=== PATIENT | female | born 2005 | race Two or more races ===

== ENCOUNTER 2025-10-22 16:36 | Emergency (ER) | payer MEDICAID, SELFPAY ==
[2025-10-22 16:40] VITALS: BP 118/78; PULSE 83; RESP 18; TEMP 37.2; O2SAT 97; BMI 23.4
[2025-10-22 16:49] VITALS: PULSE 73; O2SAT 99
--- NOTE | 2025-10-22 17:25 | EKG_ITS ---
[facility] Test Date: 2025-10-22 Pat Name: CHRIS BECKFORD Department: Room: - Gender: Female Window [employer]inter: : 2005 Requested By: Wisam Fairbanks Order Number: [id number] Reading MD: Wisam Fairbanks Measurements Intervals [place] Rate: 67 P: 76 MT: 157 QRS: 75 QRSD: 100 T: 37 QT: 398 QTc: 423 Interpretive Statements SINUS RHYTHM WITH SINUS ARRHYTHMIA INCOMPLETE RIGHT BUNDLE BRANCH BLOCK [90+ ms QRS DURATION, TERMINAL R IN V1/V2, 40+ ms S IN I/aVL/V4/V5/V6] NONSPECIFIC T-WAVE ABNORMALITY No previous ECG available for comparison /store/S0/[id number]/ecg/[id number].pdf
--- NOTE | 2025-10-22 17:25 | PD.EDRME ---
Rapid Medical Screening Exam RME Arrival date/time: 10/22/25 16:36 20-year-old female with no known medical history presents to the emergency room with a chief complaint of palpitations x 2 hours I have greeted and performed a focused initial assessment of this patient. A comprehensive ED assessment and evaluation of the patient, analysis of all test results, and completion of the medical decision making process will be conducted by additional ED providers. Time Seen by Provider: 10/22/25 16:50 Vital signs: Vital Signs Temperature 98.9 F 10/22/25 16:40 Pulse Rate 83 10/22/25 16:40 Respiratory Rate 18 10/22/25 16:40 Blood Pressure 118/78 10/22/25 16:40 Pulse Oximetry (%) 97 10/22/25 16:40 Oxygen Delivery Method Room Air 10/22/25 16:40 Vital signs reviewed by provider: Yes Exam: Patient has a strong and regular rhythm S1 and S2 Clear bilateral lung sounds Clinical Impression: Palpitations/chest pain/medical pneumonia
[2025-10-22 17:49] LABS: Basophils # (Auto) 0.0 Thou/mm3 (0.0-0.2); Basophils % (Auto) 0 % (0-2.5); Eosinophils # (Auto) 0.0 Thou/mm3 (0.0-0.5); Eosinophils % (Auto) 0 % (0-10); Hematocrit 32.4 % (36.0-46.0); Hemoglobin 10.4 g/dL (12.0-16.0); Immature Granulocytes Auto 0.01 Thou/mm3 (0.00-0.00); Lymphocytes # (Auto) 1.3 Thou/mm3 (1.0-4.8); Lymphocytes % (Auto) 22 % (10-50); Mean Corpuscular HGB Conc 32.1 g/dl (31.0-37.0); Mean Corpuscular Hemoglobin 26.7 pg (25.0-35.0); Mean Corpuscular Volume 83 fL (80-100); Monocytes # (Auto) 0.4 Thou/mm3 (0.0-0.8); Monocytes % (Auto) 7 % (0-12); Neutrophils # (Auto) 4.1 Thou/mm3 (1.8-7.7); Neutrophils % (Auto) 71 % (37-80); Nucleated Red Blood Cell # 0.00 Thou/mm3 (0.00-0.00); Nucleated Red Blood Cell % 0 /100 WBC (0); Platelet Count 267 Thou/mm3 (140-440); RDW Standard Deviation 42.3 fL (36.4-46.3); Red Blood Count 3.89 Miln/mm3 (4.00-5.20); White Blood Count 5.8 Thou/mm3 (3.6-11.0)
[2025-10-22 18:04] LABS: Collection Type, Urine Clean Catch
[2025-10-22 18:08] LABS: B-Type Natriuretic Peptide < 20 pg/mL (0-100)
[2025-10-22 18:09] LABS: Bilirubin,Urine Negative (Negative); Blood,Urine Negative (Negative); Clarity,Urine Clear (Clear/Hazy); Color,Urine Colorless (Lt Yel-Yel); Culture Indicated,Urine Not Indicated; Glucose, Urine Negative (Negative); Ketones,Urine Negative (Negative); Leukocyte Esterase,Urine Negative (Negative); Nitrite,Urine Negative (Negative); PH,Urine 6.0 (5.0-7.0); Protein,Urine Negative (Neg - Trace); RBC,Urine 1 /hpf (0-3); Specific Gravity,Urine 1.011 (1.001-1.035); Squamous Epithelial Cell,Urine < 1 /hpf (0-5); Urobilinogen,Urine Negative mg/dL (0.0-1.0); WBC,Urine < 1 /hpf (0-5)
[2025-10-22 18:12] LABS: Alanine Aminotransferase 11 U/L (10-49); Albumin, Serum 4.9 gm/dL (3.5-5.0); Albumin/Globulin Ratio 1.8 (1.2-2.2); Alkaline Phosphatase 73 U/L (46-116); Anion Gap 9 (7-16); Aspartate Amino Transferase 22 U/L (0-34); BUN/Creatinine Ratio 13 Ratio (12-20); Bilirubin,Total 0.3 mg/dL (0.3-1.2); Blood Urea Nitrogen 8 mg/dL (9-23); Calcium 9.6 mg/dL (8.3-10.6); Calcium (Corrected) 9.6 mg/dL (8.5-10.1); Carbon Dioxide 26.1 mMol/L (20.0-31.0); Chloride 108 mMol/L (98-107); Creatinine (Component) 0.6 mg/dL (0.6-1.3); Estimated Creatinine Clearance 106.5 mL/min (>60); Free T4 (Free Thyroxine) 1.17 ng/dL (0.89-1.76); Globulin 2.8 gm/dL (2.3-3.5); Glucose 95 mg/dL (74-106); Osmolality,Calculated 283 (275-295); Potassium 3.6 mMol/L (3.4-5.1); Sodium 143 mMol/L (136-145); Thyroid Stimulating Hormone 0.79 uIU/mL (0.55-4.78); Total Protein 7.7 gm/dL (5.7-8.2); Troponin I < 0.002 ng/mL (0.0-0.045); eGFR > 60 See Note
--- NOTE | 2025-10-22 19:22 | PD.EDDIZZY ---
ED Dizzyness RME/HPI General Stated Complaint: ANXIETY Time Seen by Provider: 10/22/25 16:50 Arrival date/time: 10/22/25 16:36 This is a of 20-year-old female who came in in the emergency room feeling dizzy lightheadedness palpitation and mild shortness of breath patient verbalized that she is feeling anxious because of the symptoms today persistence of the symptoms this patient decided to sought consult here in the emergency room denies any chest pain headache nausea vomiting denies any denies taking any drug or alcohol Limitations: no limitations RME / HPI RME / HPI Narrative: 10/22/25 16:36 20-year-old female with no known medical history presents to the emergency room with a chief complaint of palpitations x 2 hours I have greeted and performed a focused initial assessment of this patient. A comprehensive ED assessment and evaluation of the patient, analysis of all test results, and completion of the medical decision making process will be conducted by additional ED providers. Exam: Patient has a strong and regular rhythm S1 and S2 Clear bilateral lung sounds Impression: Palpitations/chest pain/medical pneumonia Related Data Previous Rx's ?Medication ?Instructions ?Recorded acetaminophen 500 mg capsule 1,000 mg (2 x 500 mg) PO TID #30 03/24/22 caps hydroxyzine pamoate 25 mg capsule 25 mg PO BID PRN anxiety #10 caps 10/22/25 meclizine 25 mg tablet 25 mg PO QDAY PRN dizziness #20 10/22/25 tabs ondansetron 4 mg disintegrating 4 mg PO Q8H #20 tabs 10/22/25 tablet Allergies Allergy/AdvReac Type Severity Reaction Status Date / Time No Known Allergies Allergy Verified 10/22/25 16:49 Review of Systems Review of Systems Systems Reviewed: All systems reviewed, normal except as documented Constitutional Constitutional: Reports system reviewed and no additional complaints, except as documented and Reports as per HPI ENT Ears, Nose, Mouth, and Throat: Reports system reviewed and no additional complaints, except as documented and Reports as per HPI Cardiovascular Cardiovascular: Reports system reviewed and no additional complaints, except as documented and Reports as per HPI Respiratory Respiratory: Reports system reviewed and no additional complaints, except as documented and Reports as per HPI Gastrointestinal Gastrointestinal: Reports system reviewed and no additional complaints, except as documented and Reports as per HPI Musculoskeletal Musculoskeletal: Reports system reviewed and no additional complaints, except as documented and Reports as per HPI Integumentary/Breasts Skin/Breast: Reports system reviewed and no additional complaints, except as documented and Reports as per HPI Neurologic Neurologic: Reports system reviewed and no additional complaints, except as documented and Reports as per HPI Past Medical History Past Medical History NEUROLOGIC: Negative Neurological Disorders CARDIAC: Negative Cardiac Disorders or Congestive Heart Failure RESPIRATORY: Negative Chronic Obstructive Pulmonary Disease (COPD) or Asthma GASTROINTESTINAL: Negative Gastrointestinal Disorders GENITOURINARY: Negative Genitourinary Disorders or Renal Disease REPRODUCTIVE: Negative Endometriosis, Genital Herpes, Gonorrhea, Pelvic Inflammatory Disease, Previous Pregnancies, Syphilis or Uterine Prolapse MUSCULOSKELETAL: Negative Musculoskeletal Disorders ENDOCRINE: Negative Endocrine Disorders, Diabetes Mellitus Type 1 or Diabetes Mellitus Type 2 HEMATOLOGIC: Negative Blood Disorders or Sickle Cell Disease OTHER HISTORY: Negative Hospitalization, Autoimmune Disease, Down Syndrome, Developmental Delay, Shingles, Falls, Blood Transfusions, Blood Transfusion Reaction, Anesthesia Reactions, Organ Transplant, MRSA, VRSA, Vancomycin-Resistant Enterococci, Chicken Pox, Measles, Mumps, Rubella ([place] Measles) or Clostridium Difficile Family History FAMILY HISTORY: Positive Family Cardiac Disorders (Father has murmur); Negative Family Psychiatric Problems, Family Respiratory Disorders, Family Gastrointestinal Problems, Family Cancer, Family Surgery or Family Anesthesia Reaction Surgical History SURGICAL: Negative Neurologic Surgery, Brain Shunt or Organ Transplant Social History SMOKING STATUS: Never smoker SECOND HAND EXPOSURE: No SUBSTANCE USE: does not use ED Exam General Limitations: Present no limitations General appearance: Present alert, in no apparent distress and other (Patient is awake alert oriented not in distress nontoxic looking well-hydrated well-nourished) Head Head exam: Present atraumatic, normocephalic and normal inspection Eye Eye exam: Present normal appearance, PERRL, EOMI and other (PERRL EOM intact normal conjunctiva no papilledema no hyphema) ENT ENT exam: Present normal exam, normal oropharynx, mucous membranes moist and other (HEENT exam is normal and unremarkable) Neck Neck exam: Present normal inspection, full ROM, trachea midline and other (Negative for meningeal sign); Absent tenderness, meningismus, lymphadenopathy or thyromegaly Chest Chest inspection: Present normal inspection and symmetric chest wall rise; Absent tenderness Respiratory Respiratory exam: Present normal lung sounds bilaterally; Absent respiratory distress, wheezes, stridor, accessory muscle use or prolonged expiratory phase Cardiovascular Cardiovascular exam: Present regular rate, normal rhythm, normal heart sounds and other (No pitting edema); Absent bradycardia, tachycardia, irregular rhythm, systolic murmur or diastolic murmur Abdominal Exam Abdominal exam: Present soft and normal bowel sounds; Absent distention, tenderness, guarding, rebound, rigidity, diminished bowel sounds, hyperactive bowel sounds or hypoactive bowel sounds Extremities Exam Extremities exam: Present normal inspection and full ROM Back Exam Back exam: Present normal inspection and full ROM Neurological Exam Neurological exam: Present alert, oriented X3, CN II-XII intact and reflexes normal; Absent motor sensory deficit Psychiatric Psychiatric exam: Present normal affect, normal mood and anxious; Absent depressed, agitated, flat affect, manic, homicidal ideation or suicidal ideation (No hallucination) Skin Skin exam: Present warm, dry, intact, normal color and other (Excellent skin turgor) Course Quality Measures none Orders Category Date Time Status EKG (ED ONLY) *Do not use* NOW Care 10/22/25 17:25 Completed EKG (ED Only) Stat Exams 10/22/25 17:25 Draft B-Type Natriuretic Peptide Stat Lab 10/22/25 17:38 Completed CBC Stat Lab 10/22/25 17:38 Completed Comprehensive Metabolic Panel Stat Lab 10/22/25 17:38 Completed Drug Screen,Urine Stat Lab 10/22/25 17:50 Completed Free T4 (Free Thyroxine) Stat Lab 10/22/25 17:38 Completed TSH [Thyroid Stimulating Hormone] Stat Lab 10/22/25 17:38 Completed Troponin I Stat Lab 10/22/25 17:38 Completed Urinalysis, C/S if Indicated Stat Lab 10/22/25 17:50 Completed Acetaminophen Tab [Tylenol Tab] Med 10/22/25 19:24 Discontinued 650 mg PO X1 ONE Meclizine HCl [Antivert] Med 10/22/25 19:24 Discontinued 50 mg PO X1 ONE Ondansetron Odt [Zofran Odt] Med 10/22/25 19:24 Discontinued 4 mg PO X1 ONE Sodium Chloride 0.9% 1000 ml [Ns] 1,000 ml Med 10/22/25 19:24 Discontinued IV 999 mls/hr Vital Signs Vital signs: Vital Signs Temperature 98.9 F 10/22/25 16:40 Pulse Rate 83 10/22/25 16:40 Respiratory Rate 18 10/22/25 16:40 Blood Pressure 118/78 10/22/25 16:40 Pulse Oximetry (%) 97 10/22/25 16:40 Oxygen Delivery Method Room Air 10/22/25 16:40 Oxygen saturation is 97% in room air Dizziness MDM Narrative MDM Narrative:: This is a of 20-year-old female who came in in the emergency room feeling dizzy lightheadedness palpitation and mild shortness of breath patient verbalized that she is feeling anxious because of the symptoms today persistence of the symptoms this patient decided to sought consult here in the emergency room denies any chest pain headache nausea vomiting denies any denies taking any drug or alcohol physical examination patient is awake alert oriented not in distress nontoxic looking well-hydrated well-nourished patient is mildly anxious but no depression no suicidal no homicidal ideation physical examination patient is awake alert oriented not in distress nontoxic looking well-hydrated well-nourished excellent skin turgor negative for meningeal sign HEENT exam is normal and unremarkable normal rate regular rhythm no murmur no pitting edema clear breath sounds no wheezing no rhonchi abdominal exam is benign nonsurgical no guarding no rebound no rigidity neurological exam patient is mildly anxious but no depression no hallucination no suicidal or homicidal ideation blood test showed no leukocytosis no anemia kidney and liver function is normal no electrolyte imbalance troponin is negative TSH is normal EKG is sinus rhythm based on my physical examination and history patient symptoms has no signs or symptoms of cardiopulmonary pathology patient will be discharged home stable condition follow-up with PCP in 2 days for reevaluation and to be referred to mirror fabrication supervisor for palpitation need to be referred also with psychiatrist psychologist for anxiety for any worsening symptoms or any emergent concern return precaution in the ER is advised Patient was discharged with comfortable condition walking with stable gait. Patient verbalized no further complains explained diagnosis and answered patient question. Patient is comfortable with the proposed management plan including the need to follow up with his/her primary care physician and any specialist if applicable Discussed patient for any urgent condition or worsening sx, He/She needed to go to emergency room immediately or call 911. Patient acknowledge the responsibility to follow up as instructed and to monitor her/his symptoms. For any persistence of the symptoms for more than 3-5 days return precaution advised. Discussed the result of the test and was given printed discharge instruction Patient data External records reviewed:: [facility] previous records Clinical information provided by:: patient Social determinants that could affect healthcare access:: none Patient has the following chronic illnesses:: none How is presenting disease/condition affected by chronic disease/condition?: no chronic disease Evaluation data The following diagnostics were reviewed and interpreted by me:: lab results, radiology exam(s) and EKG tracing(s) Lab and/or radiology exams considered but not ordered:: reeviwed Interpretation Summary: reviewed Medications / Prescriptions Medications or Prescriptions considered but not ordered:: given Medication administrations:: Medication Administration History Discontinued Medications Acetaminophen (Acetaminophen 325 Mg Tablet) 650 mg PO X1 ONE Stop: 10/22/25 19:25 Last Admin: 10/22/25 19:32 Dose: 650 mg Documented By: CALVIN Sodium Chloride (Ns) 1,000 mls @ 999 mls/hr IV .Q1H1M ONE Stop: 10/22/25 20:24 Last Infusion: 10/22/25 20:13 Dose: Infused Documented By: Admin: 10/22/25 19:35 Dose: 999 mls/hr Documented By: CALVIN Meclizine HCl (Meclizine Hcl 25 Mg Tablet) 50 mg PO X1 ONE Stop: 10/22/25 19:25 Last Admin: 10/22/25 19:33 Dose: 50 mg Documented By: CALVIN Ondansetron HCl (Ondansetron Odt 4 Mg Tabrap) 4 mg PO X1 ONE; Protocol Stop: 10/22/25 19:25 Last Admin: 10/22/25 19:35 Dose: Not Given Documented By: CALVIN Non-Admin Reason: Patient Refused given Consultations Consultation(s) initiated? (list below): No Diagnosis Dizziness Differential Diagnosis: benign paroxysmal positional vertigo, orthostatic hypotension and other (anxiety) Most likely diagnosis given after review of the tests above:: anxiety Admission Indicated Admission indicated?: not indicated Explain why admission is indicated or not indicated:: not indicated Admission Request Was there a request for admission?: No Admission Attestation Admission request attestation: not indicated Disposition Plan Disposition Plan: Discharge Discharge Attestation Discharge Attestation: The patient and all family members were given an opportunity to ask questions and understood the discharge instructions. Discharge instructions specifically effects, indications for sooner follow up or return to the emergency department, and the expected course of current diagnosis. Patient condition: Stable Discharge Plan Plan Patient Disposition: HOME (Self Care) Patient condition on transfer: Stable Prescriptions/Referrals Prescriptions/Med Rec: New hydroxyzine pamoate 25 mg capsule 25 mg PO BID PRN (Reason: anxiety) Qty: 10 0RF meclizine 25 mg tablet 25 mg PO QDAY PRN (Reason: dizziness) Qty: 20 0RF ondansetron 4 mg tablet,disintegrating 4 mg PO Q8H Qty: 20 0RF No Action acetaminophen 500 mg capsule 1,000 mg PO TID Qty: 30 0RF Referrals: Cody HURD),Meryl, PADMINI [Primary Care Provider] - In 1 week Problem List Clinical Impression: Dizziness, Palpitation, Anxiety Patient/Caregiver Discharge Instructions Education Materials: Treating Anxiety Disorders ..., ED Dizziness, Uncertain Cause, ED Palpitations Additional Instructions: Follow-up with your primary care physician in 2 days for reevaluation and to be referred to mirror fabrication supervisor for further evaluation and treatment of palpitation for possible echocardiogram stress test and Holter monitor he also needs to see a psychiatrist psychologist for anxiety and if the dizziness persist needs to see a neurologist for any recurrence persistent worsening symptoms or any emergent concern call 911 or go to the nearest emergency room take your medication as directed keep hydrated Print Language: Afghan Stand Alone Forms: [facility]eche Award Info., Patient Portal Info Letter JAVIER/PADMINI Supervising Physician JAVIER/PADMINI Supervising Physician: Dr. Analilia Gunn
[2025-10-22 19:27] LABS: Amphetamine/Methamp Scrn,U Negative (Negative); Barbiturate Screen,Urine Negative (Negative); Benzodiazepines Screen,Urine Negative (Negative); Benzoylecgonine Screen, Ur Negative (Negative); Fentanyl Screen,Urine Negative (Negative); Opiate Screen,Urine Negative (Negative); THC Screen,Urine Negative (Negative)
[2025-10-22 19:28] VITALS: BP 106/64; PULSE 111; RESP 18; TEMP 36.8; O2SAT 96
[2025-10-22] MEDS: ACETAMINOPHEN 325 MG TABLET 650 MG PO (19:32)
[2025-10-22] MEDS: MECLIZINE HCL 25 MG TABLET 50 MG PO (19:33)
[2025-10-22] MEDS: SODIUM CHLORIDE 0.9% 1000 ML 1,000 ML 999 ML IV (19:35)
[2025-10-22 20:28] VITALS: BP 122/76; PULSE 77; RESP 18; TEMP 36.5; O2SAT 98
== END 2025-10-22 20:30 | disposition home or self-care (01) ==
PROVIDERS: Nurse Practitioner Family; Emergency Provider Emergency Medicine; PCP Nurse Practitioner Primary Care
DX: F41.9 Anxiety disorder, unspecified (principal); R42 Dizziness and giddiness; R00.2 Palpitations; I49.8 Other specified cardiac arrhythmias; I45.10 Unspecified right bundle-branch block
CPT/HCPCS: 36415; 80053; 80307; 81001; 83880; 84439; 84443; 84484; 85025; 93005; 96360; 99283; J7030; A9270